=== PATIENT | female | born 1980 | race Caucasian/White ===

== ENCOUNTER 2018-04-27 09:45 | Inpatient (IN) ==
[2018-04-27] MEDS ORDERED: ceFAZolin Inj 2,000 MG in Sodium Chlor 0.9% Inj 100 ML IV.SIG PRN (10:00)
[2018-04-27] MEDS ORDERED: Citric Acid/Sodium Citrate Liq 30 ML UDC PO SCH (10:00)
[2018-04-27 10:57] LABS: Baso % (Auto) 0.4 % (0.0-2.0); Eos # (Auto) 0.1 th/mm3 (0.0-0.4); Eos % (Auto) 0.6 % (0.0-4.0); Hematocrit 36.9 % (35.0-46.0); Hemoglobin 12.1 gm/dL (11.6-15.3); Lymph # (Auto) 2.2 th/mm3 (1.0-4.8); Lymph % (Auto) 23.6 % (9.0-44.0); Mean Corpuscular HGB Conc 32.9 % (32.0-36.0); Mean Corpuscular Hemoglobin 25.1 pg (27.0-34.0); Mean Corpuscular Volume 76.3 fL (80.0-100.0); Mean Platelet Volume 8.3 fL (7.0-11.0); Mono # (Auto) 0.5 th/mm3 (0.0-0.9); Mono % (Auto) 5.5 % (0.0-8.0); Neut # (Auto) 6.7 th/mm3 (1.8-7.7); Neut % (Auto) 69.9 % (16.0-70.0); Platelet Count 258 th/mm3 (150-450); Red Blood Count 4.83 mil/mm3 (4.00-5.30); Red Cell Distribution Width 17.3 % (11.6-17.2); White Blood Count 9.5 th/mm3 (4.0-11.0)
[2018-04-27 11:07] LABS: Activated Partial Thrombo Time 25.1 sec (24.3-30.1); Prothrombin Time 10.4 sec (9.8-11.6)
[2018-04-27 11:11] LABS: Albumin 2.7 g/dL (3.4-5.0); Anion Gap 11 meq/L (5-15); Aspartate Aminotransferase 81 U/L (15-37); Blood Urea Nitrogen 9 mg/dL (7-18); Calcium 9.3 mg/dL (8.5-10.1); Carbon Dioxide 22.3 meq/L (21.0-32.0); Chloride 105 meq/L (98-107); Glomerular Filtration Rate Greater Than 89 mL/min (>89); Glucose,Random 70 mg/dL (74-106); Potassium 4.1 meq/L (3.5-5.1); Sodium 138 meq/L (136-145)
[2018-04-27 11:13] LABS: Alanine Aminotransferase 209 U/L (10-53)
[2018-04-27 11:15] LABS: Alkaline Phosphatase 169 U/L (45-117); Total Protein 8.1 g/dL (6.4-8.2)
[2018-04-27 11:21] LABS: Amphetamine Screen,Urine Neg (Neg); Barbiturate Screen,Urine Neg (Neg); Cannabinoid Screen,Urine Neg (Neg); Cocaine Screen,Urine Neg (Neg)
[2018-04-27 11:25] LABS: Bacteria,Urine Few /hpf; Bilirubin,Urine Negative (Negative); Clarity,Urine Cloudy (Clear); Color,Urine Amber (Yellw/Straw); Glucose,Urine (UA) Negative (Negative); Hyaline Casts,Urine 2 /lpf (0-3); Leukocyte Esterase,Urine Trace (Negative); Mucus,Urine Few /lpf (Occasional); Nitrite,Urine Negative (Negative); Opiate Screen,Urine Neg (Neg); Specific Gravity,Urine 1.027 (1.002-1.035); Squamous Epithelial Cell,Urine 6 /hpf (0-5); Uric Acid Crystals,Urine Few /hpf
[2018-04-27] MEDS ORDERED: Mag Sulf/Water 4 gm/100 ml 100 ML IV.SIG ONE (11:30)
[2018-04-27 11:32] LABS: Protein/Creatinine Ratio,Urine 0.34 (0.00-0.14)
[2018-04-27] MEDS ORDERED: Mag Sulf/Water 40 gm/1000 ml 40 GM/1,000 ML BAG IV.CONT SCH (12:00)
--- NOTE | 2018-04-27 12:03 | P.OBGPN ---
Patient is a 38-year-old at 38 weeks and 3 days by LMP consistent with 9-week ultrasound who was seen in the outpatient setting yesterday for routine OB visit, she had mildly elevated blood pressures and HELLP labs returned this morning showing significant transaminitis, she is asymptomatic, heart tones were reassuring upon her presentation to the hospital today per my recommendation. Based on her gestational age the plan will be to proceed with a repeat , patient already had her repeat scheduled for next Wednesday. Will begin magnesium for seizure prophylaxis, repeat HELLP labs upon admission show transaminitis but stable from labs yesterday and P:C 0.34 today. Her has been complicated by a history of preeclampsia at term, history of low transverse desiring repeat, varicella nonimmune and GBS positive status. She is an anterior placenta and a female fetus. H&P was dictated please see that for further details. Queried PDMP and reviewed report
[2018-04-27] MEDS ORDERED: Phenylephrine/NS 1000 MCG/10ML Syringe IV.PUSH ONE (12:20)
[2018-04-27] MEDS ORDERED: Morphine Sulfate PF Inj 5 MG/10 ML Ampul ONE (12:20)
[2018-04-27] MEDS ORDERED: Naloxone Inj 0.4 MG/ML Vial IV.PUSH PRN (12:30)
[2018-04-27] MEDS ORDERED: Morphine Inj 4 MG/ML Vial IV.PUSH PRN (13:25)
--- NOTE | 2018-04-27 13:32 | P.OP ---
Date of procedure: 04/27/18 Surgeon: Jon Sharpe MD Operation and Findings: Preoperative diagnosis: 1. Intrauterine at 38 weeks and 3 days 2. Preeclampsia with severe features 3. History of desiring repeat 4. GBS positive status Postop diagnosis 1. Same as above status post repeat Procedure 1. Repeat low transverse section Surgeon Dr. Jon Sharpe [employer] Tr[employer] Erector: [place] labor and delivery scrub staff Findings: 1. Viable female infant at 1251 Apgars 9 and 9, weight 394 5 g 2. Intact placenta 3 vessel cord at 1253 3. Normal uterus fallopian tubes and ovaries, pelvis with minimal to no adhesions, minimal subcutaneous scarring Anesthesia: Spinal Specimen: Placenta to disposal Estimated blood loss: 500 cc Fluid replacement: Lactated Ringer's, Pitocin, magnesium for seizure prophylaxis Urine output: 150 cc clear Via Gar DVT prophylaxis: Sequential compression devices throughout the case Antibiotics: 2 g Ancef preoperatively Counts: correct x2 Time out done: yes Disposition: Stable to PACU Indications: Patient is a 38-year-old G2 now P2 002 who presented to the office yesterday for routine visit, she had mild range blood pressures, she collected HELLP labs that showed significant transaminitis, she was called this morning to present to the hospital for delivery given the new diagnosis of preeclampsia with severe features. Upon arrival to the hospital her HELLP labs were stable from yesterday and had a P: C of 0.34 she was given magnesium preoperatively for seizure prophylaxis. Description of procedure: The patient was taken to the operating room and after spinal anesthesia was performed she was positioned and supine position with arms out in a left lateral tilt, the abdomen was prepped and draped in sterile fashion, a Pfannenstiel incision was made through the previous scar and carried down sharply to the fascia which was nicked on either side of the midline, this was extended bilaterally, the fascia was elevated superiorly and inferiorly and the rectus muscles were sharply dissected off the overlying fascia, the peritoneum was entered digitally and retracted laterally. A bladder flap was developed with Metzenbaum scissors at the lower uterine segment, the hysterotomy was made in the lower uterine segment with a scalpel in a curvilinear fashion, it was extended cephalad-caudad manner, I inserted my hand into the hysterotomy and the head was elevated to the hysterotomy and with fundal pressure was delivered. With gentle downward and upward guidance the anterior and posterior shoulder was delivered, followed by the torso and lower extremities with ease, the had spontaneous cry the cord was clamped and cut, the was handed off to nursing staff after delayed cord clamping was allowed. Pitocin was bolused and with uterine massage and cord traction the placenta was delivered, uterus was cleared of clot and debris, the uterus was exteriorized and the hysterotomy was closed with 1 layer, using 0 locking braided delayed absorbable suture. The abdomen and hysterotomy were irrigated, inspected, and found to be hemostatic. The fascia was closed from left to right with 0 running delayed absorbable suture. The subcutaneous tissue was irrigated, inspected, hemostasis was appreciated. The subcutaneous fat was reapproximated with 3-0 Monocryl. The skin was closed with 3-0 Monocryl and then a dressing was applied and the patient tolerated procedure well was transferred to PACU.
[2018-04-27] MEDS ORDERED: Ketorolac Inj 30 MG/ML (IVP) Vial ONE (14:17)
[2018-04-27] MEDS: Ketorolac Inj 30 MG/ML (IVP) Vial IV.PUSH SCH ×2 (14:19→20:28)
[2018-04-27] MEDS ORDERED: Oxytocin 30 Units/500ml Premix 30 UNITS/500 ML BAG IV.SIG ONE (14:30)
[2018-04-27] MEDS ORDERED: Oxytocin 30 Units/500ml Premix 30 UNITS/500 ML BAG IV.SIG PRN (18:25)
[2018-04-28] MEDS: Ketorolac Inj 30 MG/ML (IVP) Vial IV.PUSH SCH ×2 (02:44→08:10)
[2018-04-28 05:55] LABS: Baso % (Auto) 0.2 % (0.0-2.0); Eos % (Auto) 0.2 % (0.0-4.0); Hematocrit 33.4 % (35.0-46.0); Lymph # (Auto) 2.9 th/mm3 (1.0-4.8); Lymph % (Auto) 21.9 % (9.0-44.0); Mean Corpuscular HGB Conc 32.9 % (32.0-36.0); Mean Corpuscular Volume 75.8 fL (80.0-100.0); Mean Platelet Volume 8.2 fL (7.0-11.0); Mono # (Auto) 0.8 th/mm3 (0.0-0.9); Mono % (Auto) 5.9 % (0.0-8.0); Neut # (Auto) 9.5 th/mm3 (1.8-7.7); Neut % (Auto) 71.8 % (16.0-70.0); Platelet Count 232 th/mm3 (150-450); Red Blood Count 4.41 mil/mm3 (4.00-5.30); Red Cell Distribution Width 17.3 % (11.6-17.2); White Blood Count 13.3 th/mm3 (4.0-11.0)
[2018-04-28 06:26] LABS: Alanine Aminotransferase 162 U/L (10-53); Alkaline Phosphatase 139 U/L (45-117); Anion Gap 7 meq/L (5-15); Aspartate Aminotransferase 64 U/L (15-37); Blood Urea Nitrogen 7 mg/dL (7-18); Calcium 7.6 mg/dL (8.5-10.1); Carbon Dioxide 25.1 meq/L (21.0-32.0); Chloride 105 meq/L (98-107); Glomerular Filtration Rate Greater Than 89 mL/min (>89); Glucose,Random 87 mg/dL (74-106); Magnesium 3.9 mg/dL (1.5-2.5); Potassium 4.1 meq/L (3.5-5.1); Sodium 137 meq/L (136-145); Total Protein 6.5 g/dL (6.4-8.2)
--- NOTE | 2018-04-28 09:46 | P.PNOB ---
Subjective Post op day: 1 Interval history: in good spirits nursing lochia minimal no headache, nasuea, blurred vision Objective Vital Signs/I&O: Vital Signs 04/27/18 10:10 04/27/18 10:25 04/27/18 10:35 Temperature 98.2 F Pulse Rate 109 H 90 100 H Respiratory Rate 18 Blood Pressure 124/80 04/27/18 10:41 04/27/18 11:10 04/27/18 11:25 Temperature Pulse Rate 97 H 96 H 98 H Respiratory Rate Blood Pressure 04/27/18 11:40 04/27/18 11:53 04/27/18 11:55 Temperature Pulse Rate 91 H 100 H 98 H Respiratory Rate 18 Blood Pressure 138/83 116/84 04/27/18 12:00 04/27/18 12:10 04/27/18 13:35 Temperature 97.6 F Pulse Rate 101 H 97 H 108 H Respiratory Rate 18 Blood Pressure 125/81 123/84 130/72 04/27/18 13:45 04/27/18 14:13 04/27/18 14:15 Temperature Pulse Rate 83 97 H 92 H Respiratory Rate 18 18 18 Blood Pressure 137/77 125/63 136/69 04/27/18 14:22 04/27/18 14:55 04/27/18 14:56 Temperature 97.5 F L Pulse Rate 83 Respiratory Rate 18 Blood Pressure 129/76 04/27/18 15:05 04/27/18 16:47 04/27/18 18:42 Temperature 97.4 F L Pulse Rate 93 H 94 H 80 Respiratory Rate 16 Blood Pressure 122/70 119/88 04/27/18 18:45 04/27/18 18:50 04/27/18 18:55 Temperature Pulse Rate 91 H 82 77 Respiratory Rate Blood Pressure 04/27/18 19:10 04/27/18 19:55 04/27/18 20:25 Temperature 97.2 F L Pulse Rate 83 85 Respiratory Rate Blood Pressure 126/80 04/27/18 21:55 04/27/18 22:00 04/27/18 22:10 Temperature Pulse Rate 84 84 78 Respiratory Rate 16 Blood Pressure 113/72 126/80 04/27/18 23:00 04/28/18 01:00 04/28/18 02:40 Temperature Pulse Rate 77 76 Respiratory Rate 16 16 Blood Pressure 114/60 120/72 04/28/18 03:00 04/28/18 05:00 04/28/18 05:01 Temperature 97.6 F Pulse Rate 72 Respiratory Rate 16 Blood Pressure 126/72 04/28/18 06:00 04/28/18 07:29 04/28/18 07:30 Temperature 97.9 F Pulse Rate 81 84 Respiratory Rate 16 Blood Pressure 109/71 113/75 04/28/18 08:00 04/28/18 08:59 Temperature Pulse Rate 83 Respiratory Rate 16 Blood Pressure 115/66 Intake & Output 04/27/18 04/28/18 04/28/18 18:59 06:59 18:59 Weight 262 kg Result Diagrams: 04/28/18 05:10 04/28/18 05:10 Objective Remarks: GENERAL: Well-nourished, well-developed patient. CARDIOVASCULAR: Regular rate and rhythm without murmurs, gallops, or rubs. RESPIRATORY: Breath sounds equal bilaterally. No accessory muscle use. ABDOMEN/GI: Abdomen soft, non-tender, bowel sounds present. Incision: Clean, dry and intact. Fundus: Firm, non-tender at umbilicus. GENITOURINARY: Light to moderate bleeding. EXTREMITIES: No cyanosis or edema, non-tender, without signs of DVT. Medications and IVs: Active Medications Acetaminophen (Tylenol) 650 mg PO Q6H PRN PRN Reason: PAIN SCALE 1 TO 2 Calcium Gluconate (Calcium Gluconate Inj) 1 gm IV.PUSH UNSCH PRN PRN Reason: Magnesium toxicity Diphenhydramine HCl (Benadryl) 50 mg PO Q6H PRN PRN Reason: MILD TO MODERATE ITCHING Stop: 04/28/18 12:29 Diphenhydramine HCl (Benadryl Inj) 25 mg IV.PUSH Q6H PRN PRN Reason: MILD TO MODERATE ITCHING Stop: 04/28/18 12:29 Diphtheria/Pertussis/Tetanus Vacc (Boostrix Vaccine Inj) 0.5 ml IM .ONCE ONE Stop: 04/28/18 16:01 Magnesium Sulfate (Magnesium Sulfate/Water 40 Gm/1000 Ml Premix) 40 gm in 1, 000 mls @ 25 mls/hr IV.CONT Q24H [facility] Stop: 04/28/18 13:30 Last Admin: 04/27/18 11:49 Dose: 2 gm/hr, 50 mls/hr Lactated Ringer's (Lr 1000 Ml Inj) 1,000 mls @ 100 mls/hr IV.CONT .Q10H [facility] Stop: 04/28/18 14:24 Last Admin: 04/28/18 08:12 Dose: Not Given Oxytocin (Pitocin 30 Units/Ns 500 Ml Premix) 30 units in 500 mls @ 100 mls/hr IV.SIG UNSCH PRN PRN Reason: Heavy bleeding Last Admin: 04/28/18 02:44 Dose: 100 mls/hr Ibuprofen (Motrin) 800 mg PO Q8H PRN PRN Reason: cramping Ketorolac Tromethamine (Toradol Inj) 15 mg IV.PUSH Q6H [facility] Stop: 04/28/18 13:59 Last Admin: 04/28/18 08:10 Dose: 15 mg Measles/Mumps/Rubella Vaccine Live (M-M-R Ii Vaccine Inj) 0.5 ml SQ .ONCE ONE Stop: 04/28/18 16:01 Miscellaneous Information ([facility] Nursing Information) 1 each OTHER UNSCH PRN PRN Reason: SEE LABEL COMMENTS Stop: 04/28/18 12:29 Miscellaneous Information ([facility] Nursing Information) 1 each OTHER UNSCH PRN PRN Reason: SEE LABEL COMMENTS Stop: 04/28/18 12:29 Morphine Sulfate (Morphine Inj) 5 mg IV.PUSH Q4H PRN PRN Reason: BREAKTHROUGH PAIN Naloxone HCl (Narcan Inj) 0.4 mg IV.PUSH UNSCH PRN PRN Reason: SEE LABEL COMMENTS Stop: 04/28/18 12:29 Ondansetron HCl (Zofran Odt) 4 mg PO Q4H PRN PRN Reason: NAUSEA Oxycodone/Acetaminophen (Percocet 5/325 Mg) 1 tab PO Q4H PRN PRN Reason: PAIN SCALE 3 TO 5 Oxycodone/Acetaminophen (Percocet 5/325 Mg) 2 tab PO Q4H PRN PRN Reason: PAIN SCALE 6 TO 10 Sodium Chloride (Ns Flush) 2 ml IV.FLUSH BID [facility] Last Admin: 04/28/18 05:20 Dose: Not Given Sodium Chloride (Ns Flush) 2 ml IV.FLUSH UNSCH PRN PRN Reason: FLUSH AFTER USING IV ACCESS Assessment and Plan - Diagnosis (1) 38 weeks gestation of Code(s): Z3A.38 - 38 weeks gestation of Status: Acute (2) Pre-eclampsia Code(s): O14.90 - Unspecified pre-eclampsia, unspecified trimester Status: Acute (3) Status post repeat low transverse section Code(s): Z98.891 - History of uterine scar from previous surgery Status: Acute - Plan stop mag remove pacheco when diuresing transfer to floor
[2018-04-28 14:30] VITALS: O2SAT 97
[2018-04-28] MEDS ORDERED: Diphtheria/Tetanus/Pertussis Vaccine Inj 0.5 ML Syringe IM ONE (16:00)
[2018-04-28] MEDS ORDERED: Measles/Mumps/Rubella Vaccine Inj 0.5 ML Vial SQ ONE (16:00)
--- NOTE | 2018-04-29 08:05 | P.PNOB ---
Subjective Post op day: 2 Interval history: doing well, OOB, +flatus Objective Vital Signs/I&O: Vital Signs 04/28/18 08:59 04/28/18 09:00 04/28/18 11:00 Temperature Pulse Rate 85 85 Respiratory Rate 16 Blood Pressure 120/61 122/67 Pulse Oximetry 04/28/18 11:30 04/28/18 11:35 04/28/18 12:01 Temperature 98.6 F Pulse Rate 94 H Respiratory Rate 18 Blood Pressure 140/85 Pulse Oximetry 04/28/18 13:25 04/28/18 13:45 04/28/18 14:00 Temperature 98.1 F Pulse Rate 98 H Respiratory Rate 20 Blood Pressure 129/75 129/75 129/75 Pulse Oximetry 97 04/28/18 18:20 04/28/18 20:21 04/29/18 00:20 Temperature 98.4 F 98.0 F 97.9 F Pulse Rate 87 89 83 Respiratory Rate 12 18 18 Blood Pressure 118/78 115/78 126/78 Pulse Oximetry 04/29/18 07:35 Temperature 97.9 F Pulse Rate 83 Respiratory Rate 20 Blood Pressure 116/78 Pulse Oximetry Result Diagrams: 04/28/18 05:10 04/28/18 05:10 Objective Remarks: GENERAL: Well-nourished, well-developed patient. CARDIOVASCULAR: Regular rate and rhythm without murmurs, gallops, or rubs. RESPIRATORY: Breath sounds equal bilaterally. No accessory muscle use. ABDOMEN/GI: Abdomen soft, non-tender, bowel sounds present. Incision: Clean, dry and intact. Fundus: Firm, non-tender at umbilicus. GENITOURINARY: Light to moderate bleeding. EXTREMITIES: No cyanosis or edema, non-tender, without signs of DVT. Medications and IVs: Active Medications Acetaminophen (Tylenol) 650 mg PO Q6H PRN PRN Reason: PAIN SCALE 1 TO 2 Calcium Gluconate (Calcium Gluconate Inj) 1 gm IV.PUSH UNSCH PRN PRN Reason: Magnesium toxicity Oxytocin (Pitocin 30 Units/Ns 500 Ml Premix) 30 units in 500 mls @ 100 mls/hr IV.SIG UNSCH PRN PRN Reason: Heavy bleeding Last Admin: 04/28/18 02:44 Dose: 100 mls/hr Ibuprofen (Motrin) 800 mg PO Q8H PRN PRN Reason: cramping Last Admin: 04/29/18 06:49 Dose: 800 mg Morphine Sulfate (Morphine Inj) 5 mg IV.PUSH Q4H PRN PRN Reason: BREAKTHROUGH PAIN Ondansetron HCl (Zofran Odt) 4 mg PO Q4H PRN PRN Reason: NAUSEA Oxycodone/Acetaminophen (Percocet 5/325 Mg) 1 tab PO Q4H PRN PRN Reason: PAIN SCALE 3 TO 5 Last Admin: 04/29/18 00:27 Dose: 1 tab Oxycodone/Acetaminophen (Percocet 5/325 Mg) 2 tab PO Q4H PRN PRN Reason: PAIN SCALE 6 TO 10 Last Admin: 04/29/18 06:57 Dose: 2 tab Sodium Chloride (Ns Flush) 2 ml IV.FLUSH BID [facility]BAR[facility] Last Admin: 04/29/18 00:31 Dose: 2 ml Sodium Chloride (Ns Flush) 2 ml IV.FLUSH UNSCH PRN PRN Reason: FLUSH AFTER USING IV ACCESS Assessment and Plan - Diagnosis (1) 38 weeks gestation of Code(s): Z3A.38 - 38 weeks gestation of Status: Acute (2) Pre-eclampsia Code(s): O14.90 - Unspecified pre-eclampsia, unspecified trimester Status: Acute (3) Status post repeat low transverse section Code(s): Z98.891 - History of uterine scar from previous surgery Status: Acute - Plan POD #2 s/p repeat c/s, pre-eclampsia, s/p MgSO4 BPs normal, asymptomatic post op care, d/c in am Discharge Planning: routine - Attending Attestation pt seen by me
[2018-04-29] MEDS: Acetaminophen 325 MG Tablet PO PRN (19:49)
[2018-04-29] MEDS: Senna/Docusate Sodium 8.6/50 MG Tablet PO PRN (19:50)
[2018-04-30] MEDS: Acetaminophen 325 MG Tablet PO PRN (03:52)
[2018-04-30 07:55] VITALS: RESP 20; TEMP 97.6
[2018-04-30] MEDS: Senna/Docusate Sodium 8.6/50 MG Tablet PO PRN (08:28)
[2018-04-30 12:05] VITALS: BP 126/91; PULSE 77
== END 2018-04-30 12:50 | disposition home or self-care (01) ==
LOC: H2E 09:45 → H1EA 04-28 14:20
PROVIDERS: ADMIT Obstetrics & Gynecology; ATTEND Obstetrics & Gynecology